=== PATIENT | female | born 1990 | race Caucasian/White ===

== ENCOUNTER → 2019-12-12 | Outpatient (CLI) | payer OTHER ==
[~2019-12-12] MED LIST: APRI1 EACH PO; BUSP5 PO; FAMO20 PO; HYDACE5; LACT10SY PO; MAGCIT300 PO; Omeprazole20 M1; PANT20 PO; PHENA200 PO; RANI150; SULTRIDS PO; THERA-D2000 UNIT PO
[2019-12-14 14:08] LABS: HPV 16 Negative (Negative); HPV 18 Negative (Negative); HPV OTHER HR TYPES Negative (Negative)
== END | disposition home or self-care (01) ==
LOC: LAB SHORT 18:43 → LAB 18:43
PROVIDERS: Obstetrics & Gynecology
DX: Z01.419 Encounter for gynecological examination (general) (routine) without abnormal findings (principal)
CPT/HCPCS: 87624; G0123

== ENCOUNTER 2022-09-16 00:27 | Emergency (ER) | payer OTHER ==
[~2022-09-16] VITALS: Ht 160 cm; Wt 103.4 kg
[~2022-09-16 00:27] MED LIST changes: +AMOCLA875 PO
== END 2022-09-16 01:20 | disposition home or self-care (01) ==
LOC: ER 00:27
DX: S46.911A Strain of unspecified muscle, fascia and tendon at shoulder and upper arm level, right arm, initial encounter (principal); S43.401A Unspecified sprain of right shoulder joint, initial encounter; X50.0XXA Overexertion from strenuous movement or load, initial encounter; Y99.0 Civilian activity done for income or pay; F17.210 Nicotine dependence, cigarettes, uncomplicated; Z88.6 Allergy status to analgesic agent; Z79.899 Other long term (current) drug therapy
CPT/HCPCS: 73030; A9270

== ENCOUNTER 2022-12-21 06:48 | Emergency (ER) | payer OTHER ==
[~2022-12-21] VITALS: Ht 160 cm; Wt 103.4 kg
[2022-12-21 07:11] VITALS: BP 137/89
== END 2022-12-21 08:42 | disposition home or self-care (01) ==
LOC: ER 06:48
DX: K02.9 Dental caries, unspecified (principal); K03.81 Cracked tooth; K21.9 Gastro-esophageal reflux disease without esophagitis; F17.210 Nicotine dependence, cigarettes, uncomplicated; Z88.5 Allergy status to narcotic agent; Z79.899 Other long term (current) drug therapy
CPT/HCPCS: 64400; 64450; 99282-25